=== PATIENT | female | born 1995 | race Caucasian/White ===

== ENCOUNTER 2017-05-17 00:09 | Emergency (ER) | payer BC ==
[~2017-05-17] VITALS: Ht 162.6 cm; Wt 102.1 kg
[~2017-05-17 00:09] MED LIST: ADVAIR; ALBU90OI INH; ALBU90OI6 INH; ALBU90OI61 INH; CIPR500 PO; CRUTCH4 USE; FLUSAL1005 IH; FLUT110OIA IH; FLUT44OIA IH; HYDACE5 PO; IBUP600 PO; IBUP800 PO; MOMENI; MONT5TCH PO; PRED20 PO; PROAIR; PROM25 PO; RXALBOI INH
[2017-05-17 01:35] LABS: BASOPHILS ABSOLUTE AUTO 0.05 K/mm3 (0.00-0.23); BASOPHILS PERCENT AUTO 1 % (0-2); EOSINOPHILS ABSOLUTE AUTO 0.16 K/mm3 (0.00-0.68); EOSINOPHILS PERCENT AUTO 2 % (0-6); Hematocrit 40.9 % (33.0-51.0); Hemoglobin 13.9 g/dL (11.5-16.0); IMMATURE GRAN ABSOLUTE AUTO 0.04 K/mm3 (0.00-0.10); IMMATURE GRAN PERCENT AUTO 0 % (0-1); LYMPHOCYTES ABSOLUTE AUTO 2.15 K/mm3 (0.84-5.20); LYMPHOCYTES PERCENT AUTO 20 % (21-46); MONOCYTES ABSOLUTE AUTO 1.01 K/mm3 (0.16-1.47); MONOCYTES PERCENT AUTO 9 % (4-13); Mean Corpuscular Volume 91 fL (80-100); Mean Platelet Volume 10.1 fL (9.1-12.4); NEUTROPHILS ABSOLUTE AUTO 7.48 K/mm3 (1.96-9.15); NEUTROPHILS PERCENT AUTO 69 % (41-73); Platelet Count 359 K/mm3 (150-400); RDW Coefficient Variation 12.4 % (11.7-14.2); RDW Standard Deviation 40.9 fL (35.1-46.3); Red Blood Cell Count 4.48 M/mm3 (3.80-5.20); White Blood Cell Count 10.89 K/mm3 (4.00-11.30)
[2017-05-17 01:55] LABS: Alanine Aminotransfer (ALT/SGP 31 U/L (12-78); Albumin, Blood 3.7 g/dL (3.4-5.0); Albumin/Globulin Ratio 0.9 (0.8-1.8); Alk Phos 82 U/L (50-136); Anion Gap 8 mmol/L (6-16); Aspartate Aminotrans (AST/SGOT 14 U/L (12-37); Bilirubin, Total 0.2 mg/dL (0.1-1.0); Blood Urea Nitrogen 7 mg/dL (8-24); Bun/Creatinine Ratio 9.1 (12.0-20.0); CO2, Blood 26 mmol/L (21-32); Calcium, Blood 8.9 mg/dL (8.5-10.1); Chloride, Blood 107 mmol/L (98-108); Creatinine, Blood 0.77 mg/dL (0.40-1.00); Globulin, Blood 4.3 g/dL (2.2-4.0); Glomerular Filtration Rate >60 (60-); Glucose, Blood 122 mg/dL (70-99); Potassium, Blood 3.2 mmol/L (3.5-5.5); Sodium, Blood 141 mmol/L (136-145)
== END 2017-05-17 02:31 | disposition home or self-care (01) ==
LOC: ER 00:09
PROVIDERS: Emergency Medicine
DX: R11.2 Nausea with vomiting, unspecified (principal); J45.909 Unspecified asthma, uncomplicated; Z87.891 Personal history of nicotine dependence; Z88.0 Allergy status to penicillin; Z91.018 Allergy to other foods
CPT/HCPCS: 36415; 71046; 80053; 81000; 81025; 83690; 85025; 96361; 96374; 96375; 99283; J2405; J2930; J7030

== ENCOUNTER 2018-03-25 14:58 | Emergency (ER) | payer BC ==
[~2018-03-25] VITALS: Ht 162.6 cm; Wt 104.3 kg
[~2018-03-25 14:58] MED LIST changes: +CEPH500 PO
[2018-03-25] MEDS ORDERED: Cleocin HCl300 MG PO (18:29)
== END 2018-03-25 18:38 | disposition home or self-care (01) ==
LOC: ER 14:58
DX: N75.0 Cyst of Bartholin's gland (principal); J45.909 Unspecified asthma, uncomplicated; F17.210 Nicotine dependence, cigarettes, uncomplicated; Z79.899 Other long term (current) drug therapy; Z88.0 Allergy status to penicillin
CPT/HCPCS: 56420; 99283-25

== ENCOUNTER 2019-02-11 09:55 | Emergency (ER) | payer BC ==
[~2019-02-11] VITALS: Ht 162.6 cm; Wt 102.1 kg
[~2019-02-11 09:55] MED LIST changes: +Cleocin HCl300 MG PO
[2019-02-11] MEDS ORDERED: ZYRTEC10 M1 PO (10:11)
[2019-02-11] MEDS ORDERED: Cleocin HCl300 MG PO (11:29)
[2019-02-11] MEDS ORDERED: Norco 10-325 T1 EACH PO (11:29)
== END 2019-02-11 12:05 | disposition home or self-care (01) ==
LOC: ER 09:55
DX: N75.1 Abscess of Bartholin's gland (principal); Z88.0 Allergy status to penicillin; Z91.018 Allergy to other foods; J45.909 Unspecified asthma, uncomplicated; F17.210 Nicotine dependence, cigarettes, uncomplicated; Z79.899 Other long term (current) drug therapy
CPT/HCPCS: 56420; 99283-25

== ENCOUNTER → 2019-05-26 | Outpatient (CLI) | payer BC ==
[~2019-05-26] MED LIST changes: +Norco 10-325 T1 EACH PO; +ZYRTEC10 M1 PO
[2019-05-26 17:25] LABS: Adenovirus F 40/41 Not Detected (NOT DETECT); Astrovirus Not Detected (NOT DETECT); Campylobacter Sp Not Detected (NOT DETECT); Cryptosporidium Not Detected (NOT DETECT); Cyclospora Cayetanensis Not Detected (NOT DETECT); E. Coli O157 Not Detected (NOT DETECT); Entamoeba Histolytica Not Detected (NOT DETECT); Enteroaggregative E. coli-EAEC Not Detected (NOT DETECT); Enteropathogenic E. coli-EPEC Not Detected (NOT DETECT); Enterotoxigenic E. coli-ETEC Not Detected (NOT DETECT); Giardia Lamblia Not Detected (NOT DETECT); Norovirus GI/GII Not Detected (NOT DETECT); Plesiomonas Shigelloides Not Detected (NOT DETECT); Rotavirus A Not Detected (NOT DETECT); Salmonella Sp Not Detected (NOT DETECT); Sapovirus Not Detected (NOT DETECT); Shiga Toxin-prod E. coli-STEC Not Detected (NOT DETECT); Shigella/Enteroin E. coli-EIEC Not Detected (NOT DETECT); Vibrio Cholerae Not Detected (NOT DETECT); Vibrio Sp Not Detected (NOT DETECT); Yersinia Enterocolitica Not Detected (NOT DETECT)
== END | disposition home or self-care (01) ==
LOC: LAB SHORT 15:04 → LAB 15:04 → LAB FUT 05-24 15:30
PROVIDERS: Nurse Practitioner Family
DX: R10.84 Generalized abdominal pain (principal)
CPT/HCPCS: 0097U

== ENCOUNTER 2019-07-08 08:25 | Emergency (ER) | payer BC ==
[~2019-07-08] VITALS: Ht 162.6 cm; Wt 99.8 kg
[2019-07-08] MEDS ORDERED: Cleocin HCl300 MG PO (09:09)
== END 2019-07-08 09:41 | disposition home or self-care (01) ==
LOC: ER 08:25
DX: N75.1 Abscess of Bartholin's gland (principal); J45.909 Unspecified asthma, uncomplicated; Z88.0 Allergy status to penicillin; Z91.018 Allergy to other foods; Z79.899 Other long term (current) drug therapy; F17.210 Nicotine dependence, cigarettes, uncomplicated
CPT/HCPCS: 56420; 99283-25

== ENCOUNTER 2019-10-13 14:40 | Emergency (ER) | payer BC ==
[~2019-10-13] VITALS: Ht 162.6 cm; Wt 95.2 kg
[2019-10-13 19:58] LABS: Source, Urine Clean Catch
[2019-10-13 20:04] LABS: Bilirubin, Urine Neg (Neg); Blood, Urine Neg (Neg); Glucose Qualitative, Urine Neg (Neg); Ketones, Urine Neg (Neg); Leukocyte Esterase, Urine Neg (Neg); Nitrite, Urine Neg (Neg); Protein, Urine Neg (Neg); Specific Gravity, Urine 1.005 (1.003-1.022); Urobilinogen, Urine NORM (Normal); pH, Urine 6.5 (5.0-8.0)
[2019-10-13 20:05] LABS: Appearance, Urine Clear (Clear); Color, Urine Pale Yellow (P-Yellow)
[2019-10-13] MEDS ORDERED: CEFIXIME400 MG PO (20:36)
[2019-10-13] MEDS ORDERED: Flagyl500 MG PO (20:41)
== END 2019-10-13 20:48 | disposition home or self-care (01) ==
LOC: ER 14:40
PROVIDERS: Emergency Medicine
DX: N75.1 Abscess of Bartholin's gland (principal); Z88.0 Allergy status to penicillin; Z91.018 Allergy to other foods; Z79.899 Other long term (current) drug therapy; F17.200 Nicotine dependence, unspecified, uncomplicated
CPT/HCPCS: 56420; 81003; 81025; 99283-25